=== PATIENT | female | born 1960 | race Caucasian/White ===

== ENCOUNTER 2017-09-06 06:51 | Inpatient (IN) | payer OTHER ==
[~2017-09-06 06:51] MED LIST: ROPIVACAINE 0.2% 80 MG, EPINEPHrine 0.2 MG, KETOROLAC TROMETHAMINE 30 MG in SYRINGE 0 ML IU ONE; TRANEXAMIC ACID 3,000 MG in NS 50 ML IRR ONE
[2017-09-06] MEDS ORDERED: TRANEXAMIC ACID 3,000 MG/50 ML BAG IRR ONE (07:07)
--- NOTE | 2017-09-06 07:09 | PDHPUP ---
History & Physical Update H&P update statement: This history and physical update is based on an assessment of the patient which was completed after admission or registration (within 24 hours), but prior to the surgery/procedure. H&P update: H&P reviewed & patient examined, no change in patient's condition since H&P completed
[2017-09-06] MEDS ORDERED: ceFAZolin 2 GM/SWFI 2 GM/20 ML SYR IVP ONE (07:31)
[2017-09-06] MEDS ORDERED: FAMOTIDINE 20 MG TAB PO ONE (07:31)
[2017-09-06] MEDS ORDERED: LIDOCAINE 1% 2 ML INJ ID PRN (07:31)
[2017-09-06] MEDS ORDERED: ACETAMINOPHEN 325 MG TAB PO ONE (07:31)
[2017-09-06] MEDS ORDERED: LR 1,000 ML IV ONE (07:31)
[2017-09-06] MEDS ORDERED: DEXAMETHASONE 4 MG/ML VIAL IVP ONE (07:31)
--- NOTE | 2017-09-06 08:03 | PDANEPAE ---
ANE History of Present Illness 57 year old female w/ PMHx of HTN and OA presents for left total hip arthroplasty. ANE Past Medical History - Cardiovascular History Hx Hypertension: Yes Hx Arrhythmias: No Hx Chest Pain: No Hx Coronary Artery / Peripheral Vascular Disease: No Hx CHF / Valvular Disease: No Hx Palpitations: No - Pulmonary History Hx COPD: No Hx Asthma/Reactive Airway Disease: No Hx Recent Upper Respiratory Infection: No Hx Oxygen in Use at Home: No Hx Sleep Apnea: No Sleep Apnea Screening Result - Last Documented: Negative - Neurologic History Hx Cerebrovascular Accident: No Hx Seizures: No Hx Dementia: No - Endocrine History Hx Diabetes: No Obesity: no - Renal History Hx Renal Disorders: No - Liver History Hx Hepatic Disorders: No - Neurological & Psychiatric Hx Hx Neurological and Psychiatric Disorders: No - Cancer History Hx Cancer: No - Congenital Disorder History Hx Congenital Disorders: No - GI History Hx Gastrointestinal Disorders: No - Chronic Pain History Chronic Pain: No - Surgical History Prior Surgeries: nasal polyps ANE Review of Systems Review of systems is: negative Review of Systems: - Exercise capacity Exercise capacity: >=4 METS METS (RN): 4 METS ANE Patient History - Allergies Allergies/Adverse Reactions: No Known Allergies Allergy (Unverified 08/04/17 16:40) - Home Medications Home medications: home medication list seen and reviewed Home Medications: Acetaminophen [Tylenol ES 500 mg (*)] 1,000 mg PO Q4 PRN 07/28/17 [Last Taken 04:45] Cyclobenzaprine [Flexeril 10 MG (*)] 10 mg PO HS 07/28/17 [Last Taken 09/04/17] Naproxen Sodium [Aleve 220 MG (*)] 440 mg PO DAILY 07/28/17 [Last Taken 08/28/17 ] Quinapril/Hydrochlorothiazide [Quinapril-Hctz 20-12.5 mg Tab] 1 each PO DAILY [Last Taken 09/05/17 03:45] - NPO status NPO Status: no food or drink >8 hours - Anes Hx Anes Hx: no prior problems - Smoking Hx Smoking Status: Never smoked Marijuana use: No - Alcohol Use Alcohol Use: Rarely - Family Anes Hx Family Anes Hx: neg - N/A Family Hx Anesthesia Complications: neg ANE Labs/Vital Signs - Vital Signs Vital Signs: reviewed preoperatively; see RN documention for details Height: 160.02 cm Weight: 54.431 kg ANE Physical Exam - Airway Neck exam: FROM Mallampati Score: Class 2 Mouth exam: normal dental/mouth exam - Pulmonary Pulmonary: no respiratory distress - Cardiovascular Cardiovascular: regular rate and rhythym - ASA Status ASA Status: II ANE Anesthesia Plan Anesthesia Plan: GA w LMA (General anesthesia as "back-up" plan only. ), MAC, spinal Total IV Anesthesia: No
[2017-09-06] MEDS ORDERED: MIDAZOLAM 2 MG/2 ML VIAL IVP ONE (08:45)
[2017-09-06] MEDS ORDERED: PROPOFOL/EMULSION 500 MG/50 ML BOTTLE IV ONE (08:53)
[2017-09-06] MEDS ORDERED: HYDROmorphONE/DILAUDID 1 MG/ML INJ IVP PRN (09:30)
[2017-09-06] MEDS ORDERED: PHENYLEPHRINE HCL 100 MCG/ML SYR IVP PRN (09:30)
[2017-09-06] MEDS ORDERED: fentaNYL 100 MCG/2 ML INJ IVP PRN (09:30)
[2017-09-06] MEDS ORDERED: ONDANSETRON 4 MG/2 ML VIAL IVP PRN ×2 (09:30→10:44)
[2017-09-06] MEDS ORDERED: epHEDrine SULFATE 10 MG/ML SYR IVP PRN (09:30)
[2017-09-06] MEDS ORDERED: NALOXONE HCL 0.4 MG/ML INJ IVP PRN (09:30)
[2017-09-06] MEDS ORDERED: LR 500 ML IV PRN (09:30)
[2017-09-06] MEDS ORDERED: LABETALOL HCL 5 MG/ML 20 ML MDV IVP PRN (09:30)
[2017-09-06] MEDS ORDERED: PROPOFOL 200 MG/20 ML VIAL ONE (10:04)
[2017-09-06] MEDS ORDERED: POLYETHYLENE GLYCOL 3350 17 GM PKT PO PRN (10:44)
[2017-09-06] MEDS ORDERED: BISACODYL 10 MG SUPP PR PRN (10:44)
[2017-09-06] MEDS ORDERED: METOCLOPRAMIDE 10 MG/2 ML VIAL IVP PRN (10:44)
[2017-09-06] MEDS ORDERED: oxyCODONE IR 5 MG TAB PO PRN (10:44)
[2017-09-06] MEDS ORDERED: DIPHENOXYLATE/ATROPINE LOMOTIL 1 TAB PO PRN (10:44)
[2017-09-06] MEDS ORDERED: MAGNESIUM HYDROXIDE 30 ML UDCUP PO PRN (10:44)
[2017-09-06] MEDS ORDERED: PROMETHAZINE HCL 25 MG SUPPR PR PRN (10:44)
[2017-09-06] MEDS ORDERED: PROMETHAZINE HCL 25 MG/ML INJ IVP PRN (10:44)
[2017-09-06] MEDS ORDERED: LACTULOSE 20 GM/30 ML UDCUP PO PRN (10:44)
[2017-09-06] MEDS ORDERED: CYCLOBENZAPRINE 10 MG TAB PO PRN (10:44)
[2017-09-06] MEDS ORDERED: TEMAZEPAM 15 MG CAP PO PRN (10:44)
[2017-09-06] MEDS ORDERED: diphenhydrAMINE 25 MG CAP PO PRN (10:44)
[2017-09-06] MEDS ORDERED: ONDANSETRON DISINTEGRATING 4 MG TAB PO PRN (10:44)
--- NOTE | 2017-09-06 10:44 | POSTOPPROG ---
Post Op Note Date of Operation: 09/06/17 Surgeon: Joellen Mclain Telephone Interceptor Operator: christina mclain Anesthesiologist: dr. ferguson Anesthesia: Spinal Pre-op Diagnosis: left hip OA and AVN Post-op Diagnosis: same Indication: left hip pain due to AVN that failed conservative measures Procedure: L SHAGGY ant approach Findings: severe AVn and OA Inf/Abcess present in the surg proc area at time of surgery?: No EBL: 100-500
[2017-09-06] MEDS ORDERED: LR 1,000 ML IV SCH (11:00)
[2017-09-06] MEDS: ACETAMINOPHEN 325 MG TAB PO SCH ×2 (12:27→16:06)
--- NOTE | 2017-09-06 15:46 | CPEKG ---
Heart Rate: 131 RR Interval: 458 P-R Interval: 144 QRSD Interval: 78 QT Interval: 284 QTC Interval: 420 P [place]: 72 QRS [place]: 49 T Wave [place]: 48 EKG Severity - OTHERWISE NORMAL ECG - EKG Impression: SINUS TACHYCARDIA EKG Impression: VENTRICULAR PREMATURE COMPLEX Electronically Signed By: Wagner Carrasco 07-Sep-2017 16:06:10
[2017-09-06] MEDS ORDERED: METOPROLOL TARTRATE 25 MG TAB PO ONE (16:00)
[2017-09-06] MEDS ORDERED: LABETALOL HCL 5 MG/ML 20 ML MDV IVP ONE (16:15)
[2017-09-06] MEDS ORDERED: METOPROLOL TARTRATE 5 MG/5 ML INJ IVP ONE (16:15)
[2017-09-06] MEDS: ceFAZolin 2 GM/DEXTROSE 100 ML IV SCH (17:27)
--- NOTE | 2017-09-06 18:24 | POSTANESTH ---
Post Anesthetic Evaluation Cardiovascular Status: Normal, Stable, Similar to Pre-Op Cond Respiratory Status: Normal, Stable, Similar to Pre-op Cond. Level of Consciousness/Mental Status: Can Participate in Eval, Alert and Oriented Pain Control: Adequate, Prn Tx Ordered Nausea/Vomiting Control: Adequate, Prn Tx Ordered Complications Possibly Related to Anesthesia: None Noted
[2017-09-06] MEDS: ASPIRIN 81 MG CHEWABLE TAB PO SCH (20:23)
[2017-09-06] MEDS: FAMOTIDINE 20 MG TAB PO SCH (20:23)
[2017-09-06] MEDS: SENNOSIDES/DOCUSATE SODIUM TAB PO SCH (21:10)
[2017-09-07] MEDS: ACETAMINOPHEN 325 MG TAB PO SCH ×2 (00:01→05:56)
[2017-09-07] MEDS: ceFAZolin 2 GM/DEXTROSE 100 ML IV SCH (00:01)
[2017-09-07 04:41] VITALS: TEMP 98.6
--- NOTE | 2017-09-07 05:31 | GOP ---
[f rep st] OPERATIVE REPORT DATE OF OPERATION: 09/06/2017 SURGEON: Vannesa Santacruz MD ASSEMBLER RADIO AND ELECTRICAL: TERESA Delacruz PREOPERATIVE DIAGNOSIS: Left hip osteoarthritis. POSTOPERATIVE DIAGNOSIS: Left hip osteoarthritis. PROCEDURE PERFORMED: Left total hip arthroplasty with x-ray. FINDINGS: ESTIMATED BLOOD LOSS: 200 cc. INDICATIONS: The patient has progressively worsening arthritis of the hip which has failed medical m anagement. The patient understands the treatment options including continued non-operative care and has selected surgical intervention. The patient has decided to undergo total hip arthroplasty via th e direct anterior approach, understanding the risks of the procedure including, but not limited to, n eurovascular injury, infection, persistent pain, component wear and loosening, deep venous thrombosis , pulmonary embolism, limb length inequality, hip instability (including dislocation), and intra-oper ative fractures. DESCRIPTION OF PROCEDURE: After proper identification of the patient including verification and bernardo ing the surgical site, the patient was brought to the operating room and placed in the supine positio n. All bony prominences were well padded. Anesthesia was induced without complication and intraveno us prophylactic antibiotics were administered prior to skin incision. The operative leg was placed in the Trumpf Arch table extension and the well leg in a Yellofin leg ho lder. The patient was prepped and draped in the usual sterile fashion. The C-arm was draped for int ra-operative fluoroscopy to check acetabular position, femoral component position including leg lengt h and femoral offset. Attention was then drawn to surgical exposure of the hip. An incision was made with a #10 Bard Donnell r blade starting 3 cm lateral and 3 cm distal to the anterior superior iliac spine measuring 8-10 cm and coursing distally toward the greater trochanter. The skin and subcutaneous tissues were divided sharply down to the fascia sobeida. The fascia sobeida was incised in line with the skin incision exposing the underlying tensor fascia sobeida muscle. The muscle was bluntly elevated from the fascia and the f irst extracapsular Cobra retractor was placed laterally at the junction of the superior femoral neck and greater trochanter. The lateral femoral circumflex vessels were identified, cauterized, and divi ded with the Aquamantys bipolar cautery. The deep investing fascia of the TFL was divided to allow p magui mobilization of the muscle preventing damage during the retraction. The reflected head of the rectus femoris muscle was elevated off the anterior hip capsule and a medial Cobra retractor was plac ed just proximal to the lesser trochanter. The anterior capsulotomy was made sharply from the superolateral acetabulum to the saddle junction of the superior femoral neck and greater trochanter, then coursing inferomedial towards the lesser troc hanter. The retractors were then placed in the intracapsular position for femoral neck osteotomy. C orresponding to pre-operative templating, the osteotomy was made with the oscillating saw carefully p rotecting the greater trochanter and soft tissues. The femoral head was removed from the acetabulum with a corkscrew and confirmed to be severely arthritic with exposed bone, deformity and osteophytes. Similar findings were confirmed in the acetabulum. The Arch table extension was then placed in 40 degrees external rotation. Attention was then drawn to the acetabular preparation. After placement of the anterior and posterio r Cobra retractors outside the labrum and intracapsular, the circumferential labrum was removed sharp ly. The foveal contents were then removed and hemostasis obtained with cautery. The first reamer selected was sized using the removed femoral head. Reaming began with medialization and then commenced in 2 mm increments at 45 degrees of abduction and 15 degrees of anteversion using fluoroscopic navigation. Reaming ceased 1 mm less than the definitive acetabular component and rubio esponded to the pre-operative templating. The final acetabular component was inserted using fluorosc opy to achieve proper orientation yielding excellent purchase and stability in the acetabulum. The f inal acetabular liner was then placed and its seating confirmed. Attention was then turned to the femur. The Arch table extension was placed in extension and adducti on, delivering the osteotomized femoral neck into the wound. A 2-pronged femoral elevator was placed at the calcar and another at the tip of the greater trochanter. The posterolateral capsule was rele ased with cautery allowing mobilization of the femur lateral and anterior for preparation. The exter nal rotators were visualized and preserved. A curette and rongeur were used to open the starting poi nt for broaching. Serial broaching started with the #0 broach and ended with the broach that exhibit ed excellent fit in the proximal femur. A change in pitch during mallet strikes was accompanied by t he inability to advance the broach any further. The trial reduction was performed and fluoroscopic n avigation was utilized to check limb length. Adjustments were made to equalize limb length according ly. After the final trials were accepted they were removed and the wound was copiously lavaged. The femo ral component was seated to the same depth as the final broach and the femoral head was impacted onto the clean trunnion. The hip was then reduced for the final time and once more fluoroscopy was used to check that limb length equality was achieved. The wound was irrigated and closed in layers, the fascia sobeida with 2-0 Quill, the subcutaneous tissue with 2-0 Quill, and the skin with Dermabond. Sterile dressings were applied. Final sharps and spon ge counts were accurate. The patient was then transferred to a hospital bed and brought [facility] in stable condition. IMPLANTS: Accolade II size 4 at 127. Acetabular component a 50 mm Tritanium. The liner is a Triden t X3, 32 mm. The head is a Biolox delta 32 mm +0. /[id number]/MODL
[2017-09-07 08:08] VITALS: RESP 18; O2SAT 100
[2017-09-07] MEDS ORDERED: QUINAPRIL PO SCH (09:00)
[2017-09-07] MEDS ORDERED: HYDROCHLOROTHIAZIDE PO SCH (09:00)
[2017-09-07] MEDS: FAMOTIDINE 20 MG TAB PO SCH (09:14)
[2017-09-07] MEDS: ASPIRIN 81 MG CHEWABLE TAB PO SCH (09:14)
[2017-09-07] MEDS: SENNOSIDES/DOCUSATE SODIUM TAB PO SCH (09:14)
[2017-09-07 09:18] VITALS: BP 143/83; PULSE 89
--- NOTE | 2017-09-07 12:50 | ASDISCHSUM ---
Discharge Information Plan Status:Home with No Needs Medically Cleared to Leave: Discharge Date:09/07/2017 11:27 AM CM D/C Disposition:Home, Routine, Self-Care ADT D/C Disposition:Home, Routine, Self-Care Projected Discharge Date:09/07/2017 11:27 AM Transportation at D/C: Discharge Delay Reason: Follow-Up Date:09/07/2017 11:27 AM Discharge Slot: Final Diagnosis: Placement Information Patient Contact Information Contact Name:JENIFFER Relationship: Address:[address] City:[place] Alternate Phone: [facility]/Zip Code:[place] [address] Email: Financial Information Financial Class:HMO and PPO Plans Primary Plan Desc:ISABELA PPO POS HMO SIG ADM Primary Plan Number:[id number] Secondary Plan Desc: Secondary Plan Number: Assessment Information CM Human Factors Ergonomist Assessment CM Note CM Note Notes: Sean, Blair' , believes his will be discharging home, independently. Originally, Dr. Santacruz discussed making the procedure outpatient, but switched it to inpatient recently. Felisha is a 57 year-old healthy female and is not expected to need accommodations post-surgery. Her has obtained a walker for her and will be caring for her through her recovery. Felisha scored an 11 on the Risk Assessment and Prevention Tool meaning her discharge destination should be directly home. Date Signed: 08/30/2017 12:00 PM Electronically Signed By:Shaina Moreno Intervention Information
--- NOTE | 2017-09-07 13:06 | SOAPPROG ---
SOAP Progress Note Assessment/Plan: Assessment: Patient is doing well s/p L SHAGGY pain is well controlled on oxycodone VTE ppx: recommend ASA 81 mg BID anemia: level expected initially postop d/c planning: d/c to home tachycardia: resolved, recommend that patient follow up with PCP postop Plan: 09/07/17 13:04 09/07/17 13:05 Subjective: Felisha is doing well, states pain has already improved since surgery, denies SOB , chest pain and N/v Objective: Vital Signs Temp Pulse Resp BP Pulse Ox 37.0 C 89 18 143/83 H 100 09/07/17 08:00 09/07/17 09:17 09/07/17 08:00 09/07/17 09:17 09/07/17 09:17 Laboratory Results 09/07/17 04:19 09/06/17 09/07/17 09/08/17 05:59 05:59 05:59 Intake Total 1800 Output Total 2650 Balance -850 LLE; incision dressing is clean and dry, NVI, +pf/df ICD10 Worksheet Patient Problems: Problems Problem Status Onset Avascular necrosis of femoral head Acute Avascular necrosis of femur head, left Acute Primary localized osteoarthritis of left hip Acute
--- NOTE | 2017-09-07 13:47 | GDS ---
[f rep st] DISCHARGE SUMMARY ADMISSION DIAGNOSIS: Left hip avascular necrosis and osteoarthritis. DISCHARGE DIAGNOSIS: Left hip osteoarthritis and avascular necrosis. PROCEDURE: Left total hip arthroplasty. VTE PROPHYLAXIS: Aspirin recommended, 81 mg twice daily for 4 weeks. BRIEF DESCRIPTION OF HOSPITAL STAY: Patient was admitted for an elective joint arthroplasty. The pa heidi tolerated the procedure well and has passed physical therapy. The patient was given appropriat e antibiotic prophylaxis and venous thromboembolism prophylaxis. The patient's pain was well control led on oral pain medication, patient was holding down food, and had urinated. Decision was made to d ischarge the patient. The patient was given post-operative prescriptions pre-operatively. PLAN: To follow up as scheduled in Dr. Santacruz's office in 3 weeks. Of note, recommend the patien t return to Primary Care Physician office. Postoperatively, she had a period of tachycardia, heart r ate up to 150s, no chest pain. No other issues. It resolved within a couple hours. Also, elevated blood pressure, recommended she see her PCP. /[id number]/MODL
== END 2017-09-07 11:27 | disposition home or self-care (01) | DRG 470 ==
LOC: F3N 06:51
PROVIDERS: ADMIT Orthopaedic Surgery; ATTEND Orthopaedic Surgery
PROC: 0SRB04Z Replacement of Left Hip Joint with Ceramic on Polyethylene Synthetic Substitute, Open Approach (ICD-10-PCS; principal; 2017-09-06 09:15)
DX: M16.12 Unilateral primary osteoarthritis, left hip (principal); M87.852 Other osteonecrosis, left femur; R00.0 Tachycardia, unspecified; I10 Essential (primary) hypertension
CPT/HCPCS: 97116-GP; 97161-GP; 97165-GO; 97530-GP; J0171; J0690; J1100; J1885; J2250; J2370; J2704; J2795; J3490

== ENCOUNTER 2017-11-01 06:09 | Inpatient (IN) | payer OTHER ==
[~2017-11-01 06:09] MED LIST changes: +TRANEXAMIC ACID 3,000 MG in NS (SYRINGE) 50 ML IRR ONE; -TRANEXAMIC ACID 3,000 MG in NS 50 ML IRR ONE
[2017-11-01] MEDS ORDERED: LR 1,000 ML IV ONE (06:38)
[2017-11-01] MEDS ORDERED: LIDOCAINE 1% 2 ML INJ ID PRN (06:38)
[2017-11-01] MEDS ORDERED: DEXAMETHASONE 4 MG/ML VIAL IVP ONE (06:38)
[2017-11-01] MEDS ORDERED: ceFAZolin 2 GM/SWFI 2 GM/20 ML SYR IVP ONE (06:38)
[2017-11-01] MEDS ORDERED: FAMOTIDINE 20 MG TAB PO ONE (06:38)
[2017-11-01] MEDS ORDERED: ACETAMINOPHEN 325 MG TAB PO ONE (06:38)
[2017-11-01] MEDS ORDERED: TRANEXAMIC ACID 3,000 MG/50 ML BAG IRR ONE (07:11)
[2017-11-01] MEDS ORDERED: MIDAZOLAM 2 MG/2 ML VIAL IVP ONE (07:38)
--- NOTE | 2017-11-01 07:38 | PDANEPAE ---
ANE History of Present Illness noel ANE Past Medical History - Cardiovascular History Hx Hypertension: Yes Hx Arrhythmias: No Hx Chest Pain: No Hx Coronary Artery / Peripheral Vascular Disease: No Hx CHF / Valvular Disease: No Hx Palpitations: No - Pulmonary History Hx COPD: No Hx Asthma/Reactive Airway Disease: No Hx Recent Upper Respiratory Infection: No Hx Oxygen in Use at Home: No Hx Sleep Apnea: No Sleep Apnea Screening Result - Last Documented: Negative - Neurologic History Hx Cerebrovascular Accident: No Hx Seizures: No Hx Dementia: No - Endocrine History Hx Diabetes: No - Renal History Hx Renal Disorders: No - Liver History Hx Hepatic Disorders: No - Neurological & Psychiatric Hx Hx Neurological and Psychiatric Disorders: No - Cancer History Hx Cancer: No - Congenital Disorder History Hx Congenital Disorders: No - GI History Hx Gastrointestinal Disorders: No - Other Health History Other Health History: wears contacts/ glasses - Chronic Pain History Chronic Pain: No - Surgical History Prior Surgeries: nasal polyps ANE Review of Systems Review of Systems: - Exercise capacity METS (RN): 4 METS ANE Patient History - Allergies Allergies/Adverse Reactions: No Known Allergies Allergy (Verified 09/26/17 10:58) - Home Medications Home Medications: Cyclobenzaprine [Flexeril 10 MG (*)] 10 mg PO HS 07/28/17 [Last Taken 10/30/17] Quinapril/Hydrochlorothiazide [Quinapril-Hctz 20-12.5 mg Tab] 1 each PO DAILY [Last Taken 10/31/17 07:00] - NPO status NPO Status: no food or drink >8 hours NPO Since - Liquids (Date): 10/31/17 NPO Since - Liquids (Time): 19:00 NPO Since - Solids (Date): 10/31/17 NPO Since - Solids (Time): 17:30 - Anes Hx Anes Hx: no prior problems - Smoking Hx Smoking Status: Never smoked - Family Anes Hx Family Hx Anesthesia Complications: neg ANE Labs/Vital Signs - Vital Signs Blood Pressure: 187/100 Heart Rate: 99 Respiratory Rate: 16 O2 Sat (%): 97 Height: 160.02 cm Weight: 54.431 kg ANE Physical Exam - Airway Mallampati Score: Class 2 Mouth exam: normal dental/mouth exam - Pulmonary Pulmonary: no respiratory distress - Cardiovascular Cardiovascular: regular rate and rhythym - ASA Status ASA Status: II ANE Anesthesia Plan Anesthesia Plan: spinal
[2017-11-01] MEDS ORDERED: PROPOFOL/EMULSION 500 MG/50 ML BOTTLE IV ONE ×2 (07:48→08:41)
[2017-11-01] MEDS ORDERED: LIDOCAINE 2% 5 ML SDV ONE (07:48)
[2017-11-01] MEDS ORDERED: BUPIVACAINE/DEXTROSE 7.5MG/ML 2 ML SPINAL AMP SP ONE (07:48)
[2017-11-01] MEDS ORDERED: LR 500 ML IV PRN (08:56)
[2017-11-01] MEDS ORDERED: NALOXONE HCL 0.4 MG/ML INJ IVP PRN (08:56)
[2017-11-01] MEDS ORDERED: ENALAPRILAT DIHYDRATE 1.25 MG/ML VIAL IVP PRN (08:56)
[2017-11-01] MEDS ORDERED: HYDROmorphONE/DILAUDID 1 MG/ML INJ IVP PRN (08:56)
[2017-11-01] MEDS ORDERED: ALBUTEROL 3 ML DEYVIAL IH PRN (08:56)
[2017-11-01] MEDS ORDERED: DIAZEPAM 5 MG/ML 1 ML SYR IVP PRN (08:56)
[2017-11-01] MEDS ORDERED: ONDANSETRON 4 MG/2 ML VIAL IVP PRN ×2 (08:56→09:21)
[2017-11-01] MEDS ORDERED: fentaNYL 100 MCG/2 ML INJ IVP PRN (08:56)
[2017-11-01] MEDS ORDERED: HYDROmorphONE/DILAUDID 2 MG/ML INJ IVP PRN (09:16)
[2017-11-01] MEDS ORDERED: diphenhydrAMINE 25 MG CAP PO PRN (09:21)
[2017-11-01] MEDS ORDERED: PROMETHAZINE HCL 25 MG/ML INJ IVP PRN (09:21)
[2017-11-01] MEDS ORDERED: BISACODYL 10 MG SUPP PR PRN (09:21)
[2017-11-01] MEDS ORDERED: METOCLOPRAMIDE 10 MG/2 ML VIAL IVP PRN (09:21)
[2017-11-01] MEDS ORDERED: DIPHENOXYLATE/ATROPINE LOMOTIL 1 TAB PO PRN (09:21)
[2017-11-01] MEDS ORDERED: MAGNESIUM HYDROXIDE 30 ML UDCUP PO PRN (09:21)
[2017-11-01] MEDS ORDERED: POLYETHYLENE GLYCOL 3350 17 GM PKT PO PRN (09:21)
[2017-11-01] MEDS ORDERED: PROMETHAZINE HCL 25 MG SUPPR PR PRN (09:21)
[2017-11-01] MEDS ORDERED: TEMAZEPAM 15 MG CAP PO PRN (09:21)
[2017-11-01] MEDS ORDERED: ONDANSETRON DISINTEGRATING 4 MG TAB PO PRN (09:21)
[2017-11-01] MEDS ORDERED: LACTULOSE 20 GM/30 ML UDCUP PO PRN (09:21)
--- NOTE | 2017-11-01 09:21 | POSTOPPROG ---
Post Op Note Date of Operation: 11/01/17 Surgeon: Joellen Santacruz Sale Professional Digital Marketing: christina cardenas Anesthesiologist: dr. hastings Anesthesia: Spinal Pre-op Diagnosis: right hip OA Post-op Diagnosis: same Indication: right hip pain due to OA that failed conservative measures Procedure: R SHAGGY ant approach Findings: severe hip OA Inf/Abcess present in the surg proc area at time of surgery?: No EBL: 100-500
--- NOTE | 2017-11-01 09:25 | POSTANESTH ---
Post Anesthetic Evaluation Cardiovascular Status: Normal, Stable Respiratory Status: Normal, Stable Level of Consciousness/Mental Status: Can Participate in Eval Pain Control: Adequate, Prn Tx Ordered Nausea/Vomiting Control: Adequate, Prn Tx Ordered Complications Possibly Related to Anesthesia: None Noted
[2017-11-01 11:10] VITALS: RESP 16
[2017-11-01] MEDS: LR 1,000 ML IV SCH ×2 (11:34→19:59)
[2017-11-01] MEDS: ACETAMINOPHEN 325 MG TAB PO SCH ×3 (12:27→23:05)
[2017-11-01] MEDS: ceFAZolin 2 GM/SWFI 2 GM/20 ML SYR IVP SCH ×2 (16:21→23:06)
[2017-11-01] MEDS: oxyCODONE IR 5 MG TAB PO PRN ×4 (16:22→23:43)
[2017-11-01] MEDS: ASPIRIN 81 MG CHEWABLE TAB PO SCH (19:51)
[2017-11-01] MEDS: CYCLOBENZAPRINE 10 MG TAB PO PRN (19:51)
[2017-11-01] MEDS: SENNOSIDES/DOCUSATE SODIUM TAB PO SCH (20:10)
[2017-11-01] MEDS: FAMOTIDINE 20 MG TAB PO SCH (20:10)
--- NOTE | 2017-11-01 22:22 | GOP ---
[f rep st] OPERATIVE REPORT DATE OF OPERATION: 11/01/2017 SURGEON: Vannesa Santacruz MD CONSUMER ANALYST: Renetta Santacruz PA-C ANESTHESIA: Monitored. PREOPERATIVE DIAGNOSIS: Right hip osteoarthritis. POSTOPERATIVE DIAGNOSIS: Right hip osteoarthritis. PROCEDURE PERFORMED: Right total hip arthroplasty with x-ray. FINDINGS: ESTIMATED BLOOD LOSS: 200 cc. INDICATIONS: The patient has progressively worsening arthritis of the hip which has failed medical management. The patient understands the treatment options including continued non-operative care and has selected surgical intervention. The patient has decided to undergo total hip arthroplasty via the direct anterior approach, understanding the risks of the procedure including , but not limited to, neurovascular injury, infection, persistent pain, component wear and loosening, deep venous thrombosis, pulmonary embolism, limb length inequality, hip instability (including dislocation), and intra-operative fractures. DESCRIPTION OF PROCEDURE: After proper identification of the patient including verification and marking the surgical site, the patient was brought to the operating room and placed in the supine position. All bony prominences were well padded. Anesthesia was induced without complication and intravenous prophylactic antibiotics were administered prior to skin incision. The operative leg was placed in the Trumpf Arch table extension and the well leg in a Yellofin leg main. The patient was prepped and draped in the usual sterile fashion. The C-arm was draped for intra-operative fluoroscopy to check acetabular position, femoral component position including leg length and femoral offset. Attention was then drawn to surgical exposure of the hip. An incision was made with a #10 Bard Cristo blade starting 3 cm lateral and 3 cm distal to the anterior superior iliac spine measuring 8-10 cm and coursing distally toward the greater trochanter. The skin and subcutaneous tissues were divided sharply down to the fascia sobeida. The fascia sobeida was incised in line with the skin incision exposing the underlying tensor fascia sobeida muscle. The muscle was bluntly elevated from the fascia and the first extracapsular Cobra retractor was placed laterally at the junction of the superior femoral neck and greater trochanter. The lateral femoral circumflex vessels were identified, cauterized , and divided with the Aquamantys bipolar cautery. The deep investing fascia of the TFL was divided to allow proper mobilization of the muscle preventing damage during the retraction. The reflected head of the rectus femoris muscle was elevated off the anterior hip capsule and a medial Cobra retractor was placed just proximal to the lesser trochanter. The anterior capsulotomy was made sharply from the superolateral acetabulum to the saddle junction of the superior femoral neck and greater trochanter, then coursing inferomedial towards the lesser trochanter. The retractors were then placed in the intracapsular position for femoral neck osteotomy. Corresponding to pre-operative templating, the osteotomy was made with the oscillating saw carefully protecting the greater trochanter and soft tissues. The femoral head was removed from the acetabulum with a corkscrew and confirmed to be severely arthritic with exposed bone, deformity and osteophytes. Similar findings were confirmed in the acetabulum. The Arch table extension was then placed in 40 degrees external rotation. Attention was then drawn to the acetabular preparation. After placement of the anterior and posterior Cobra retractors outside the labrum and intracapsular, the circumferential labrum was removed sharply. The foveal contents were then removed and hemostasis obtained with cautery. The first reamer selected was sized using the removed femoral head. Reaming began with medialization and then commenced in 2 mm increments at 45 degrees of abduction and 15 degrees of anteversion using fluoroscopic navigation. Reaming ceased 1 mm less than the definitive acetabular component and corresponded to the pre-operative templating. The final acetabular component was inserted using fluoroscopy to achieve proper orientation yielding excellent purchase and stability in the acetabulum. The final acetabular liner was then placed and its seating confirmed. Attention was then turned to the femur. The Arch table extension was placed in extension and adduction, delivering the osteotomized femoral neck into the wound. A 2-pronged femoral elevator was placed at the calcar and another at the tip of the greater trochanter. The posterolateral capsule was released with cautery allowing mobilization of the femur lateral and anterior for preparation. The external rotators were visualized and preserved. A curette and rongeur were used to open the starting point for broaching. Serial broaching started with the #0 broach and ended with the broach that exhibited excellent fit in the proximal femur. A change in pitch during mallet strikes was accompanied by the inability to advance the broach any further. The trial reduction was performed and fluoroscopic navigation was utilized to check limb length. Adjustments were made to equalize limb length accordingly. After the final trials were accepted they were removed and the wound was copiously lavaged. The femoral component was seated to the same depth as the final broach and the femoral head was impacted onto the clean trunnion. The hip was then reduced for the final time and once more fluoroscopy was used to check that limb length equality was achieved. The wound was irrigated and closed in layers, the fascia sobeida with 2-0 Quill, the subcutaneous tissue with 2-0 Quill, and the skin with Dermabond. Sterile dressings were applied. Final sharps and sponge counts were accurate. The patient was then transferred to a hospital bed and brought to the recovery room in stable condition. IMPLANTS: Accolade II size 4 at 132. Acetabular component a 50 mm Tritanium. The liner is a Trident X3, 32 mm. The head is a Biolox Delta 32 mm +0. /[id number]/MODL MTDD
[2017-11-02] MEDS: ACETAMINOPHEN 325 MG TAB PO SCH (05:52)
[2017-11-02] MEDS: CYCLOBENZAPRINE 10 MG TAB PO PRN (05:52)
[2017-11-02] MEDS: oxyCODONE IR 5 MG TAB PO PRN ×2 (06:42→10:12)
[2017-11-02] MEDS: SENNOSIDES/DOCUSATE SODIUM TAB PO SCH (08:32)
[2017-11-02] MEDS: ASPIRIN 81 MG CHEWABLE TAB PO SCH (08:33)
[2017-11-02] MEDS: FAMOTIDINE 20 MG TAB PO SCH (08:33)
[2017-11-02 08:46] VITALS: BP 116/75; PULSE 99; TEMP 98.5; O2SAT 95
[2017-11-02] MEDS ORDERED: HYDROCHLOROTHIAZIDE PO SCH ×2 (09:00)
[2017-11-02] MEDS ORDERED: QUINAPRIL PO SCH ×2 (09:00)
--- NOTE | 2017-11-02 15:22 | SOAPPROG ---
[facility] Progress Note Assessment/Plan: Assessment: patient is doing well POD 1 s/p R SHAGGY pain is well controlled DVT ppx: recommend aspirin 81 mg BID Anemia: level expected initially postop, artificially low H/H as lab patrica blood from above her IV d/c planning: d/c to home today Plan: 11/02/17 15:21 Subjective: trudy is doing well, states back pain is worse than hip, denies SOB, chest pain Objective: Vital Signs Temp Pulse Resp BP Pulse Ox 36.9 C 99 16 116/75 95 11/02/17 08:00 11/02/17 08:00 11/02/17 08:00 11/02/17 08:00 11/02/17 08:00 Laboratory Results 11/02/17 04:57 11/01/17 11/02/17 11/03/17 05:59 05:59 05:59 Intake Total 4203 Output Total 1850 Balance 2353 RLE: incision dressing is clean and dry, NVI, +pf/df ICD10 Worksheet Patient Problems: Problems Problem Status Onset Avascular necrosis of femoral head Acute Avascular necrosis of femur head, left Acute Primary localized osteoarthritis of left hip Acute Primary localized osteoarthritis of right hip Acute
== END 2017-11-02 12:05 | disposition home or self-care (01) | DRG 470 ==
LOC: F3N 06:09
PROVIDERS: ADMIT Orthopaedic Surgery; ATTEND Orthopaedic Surgery
PROC: 0SR904Z Replacement of Right Hip Joint with Ceramic on Polyethylene Synthetic Substitute, Open Approach (ICD-10-PCS; principal; 2017-11-01 08:15)
DX: M16.11 Unilateral primary osteoarthritis, right hip (principal); I10 Essential (primary) hypertension
CPT/HCPCS: 97110-GP; 97116-GP; 97161-GP; 97165-GO; J0171; J0690; J1100; J1885; J2250; J2704; J2795